=== PATIENT | male | born 1985 | race Caucasian/White ===

== ENCOUNTER 2016-10-25 19:07 | Emergency (ER) | payer SELFPAY ==
[~2016-10-25] VITALS: Ht 172.7 cm; Wt 77.3 kg
[~2016-10-25 19:07] MED LIST: PENI500T PO; PHEN12.5 PO; PHEN12.5 PR; TYLE3 PO; Z.0.NO CURRENT MEDS
[2016-10-25 19:09] VITALS: BP 143/94; PULSE 68; RESP 16; TEMP 98; O2SAT 97
--- NOTE | 2016-10-25 20:07 | PD ---
HPI Chief Complaint: Oral / Dental Pain or Problem Time Seen by Provider: 19:45 Travel History International Travel<30 days: No Contact w/Intl Traveler<30days: No Traveled to known affect area: No History of Present Illness HPI 30-year-old male with no significant past medical history presents to emergency room for right lower dental pain. He reports he cracked tooth while eating hard candy approximately one month ago and has had intermittent pain since. He reports that he has some gum tenderness and swelling around the tooth. He denies fevers chills or difficulty swallowing. He reports he has a dentist but has been unable to make an appointment due to financial reasons. PFS Past Medical History Medical History: Denies Significant Hx Diminished Hearing: No Tetanus Vaccination: Unknown Influenza Vaccination: No ?: Not Social History Alcohol Use: No Tobacco Use: No Substance Use: No Allergies-Medications (Allergen,Severity, Reaction): Coded Allergies: No Known Allergies (Verified , 10/25/16) Reported Meds & Prescriptions Reported Meds & Active Scripts Active Phenergan (Promethazine HCl) 12.5 Mg Tab 12.5 Mg PO Q6HPRN FOR NAUSEA Phenergan (Promethazine HCl) 12.5 Mg Sup 12.5 Mg SD Q6HPRN FOR NAUSEA USE IF UNABLE TO TAKE ORAL MEDICATION Pen Vk (Penicillin V Potassium) 500 Mg Tab 500 Mg PO QID Tylenol #3 (Acetaminophen/Codeine Phosphate) 300 Mg/30 Mg Tab 1 Tab PO Q6HPRN FOR PAIN Reported No Current Meds (Miscellaneous Medication) Misc Review of Systems Except as stated in HPI: all other systems reviewed are Neg Physical Exam Narrative GENERAL: Alert well-appearing male in no acute distress SKIN: Focused skin assessment warm/dry. HEAD: Atraumatic. Normocephalic. EYES: Pupils equal and round. No scleral icterus. No injection or drainage. MOUTH: Tooth #29 has a partial crack and some decay. He has surrounding gum erythema and tenderness. NECK: Trachea midline. No JVD. CARDIOVASCULAR: Regular rate and rhythm. No murmur appreciated. RESPIRATORY: No accessory muscle use. Clear to auscultation. Breath sounds equal bilaterally. MUSCULOSKELETAL: No obvious deformities. No clubbing. No cyanosis. No edema. NEUROLOGICAL: Awake and alert. No obvious cranial nerve deficits. Motor grossly within normal limits. Normal speech. PSYCHIATRIC: Appropriate mood and affect; insight and judgment normal. Data Data Last Documented VS Vital Signs Date Time Temp Pulse Resp B/P Pulse Ox O2 Delivery O2 Flow Rate FiO2 10/25/16 19:09 98.0 68 16 143/94 97 MDM Medical Decision Making Medical Screen Exam Complete: Yes Emergency Medical Condition: Yes Differential Diagnosis Dental abscess, dental caries, fractured tooth, periodontal disease Narrative Course 30-year-old male presents for evaluation of right lower dental pain. He reports he cracked a tooth last month and has had intermittent pain. He reports in the last several days areas become increasingly more painful. On exam the patient does have a cracked tooth surrounding gum erythema patient will be treated with penicillin and instructed to follow up with his dentist. Diagnosis Primary Impression: Dental infection Referrals: Dentist Scripts Ibuprofen 800 Mg [id number] Mg PO Q8H PRN (Pain/Inflammation) #30 TAB Prov:Catherine Branch 10/25/16 Penicillin V Potassium 250 Mg [id number] Mg PO Q6H #28 TAB Ref 0 Prov:Catherine Branch 10/25/16 Disposition: 01 DISCHARGE HOME Condition: Stable Catherine Branch October 25, 2016 20:07
[2016-10-25] MEDS ORDERED: PENI250T PO (20:08)
[2016-10-25] MEDS ORDERED: IBUP800T23 PO (20:08)
== END 2016-10-25 20:30 | disposition home or self-care (01) ==
LOC: PHEFT 19:07
DX: K08.89 Other specified disorders of teeth and supporting structures (principal)
CPT/HCPCS: 99283

== ENCOUNTER 2017-04-06 13:48 | Emergency (ER) | payer SELFPAY ==
[~2017-04-06] VITALS: Ht 167.6 cm; Wt 75.8 kg
[~2017-04-06 13:48] MED LIST changes: +IBUP1TAB7 PO; +PENI250T PO
[2017-04-06 14:08] VITALS: BP 121/76; PULSE 80; RESP 18; TEMP 98.7; O2SAT 97
--- NOTE | 2017-04-06 14:11 | PD ---
HPI Chief Complaint: Eye Problems/Injury Time Seen by Provider: 14:04 Travel History International Travel<30 days: No Contact w/Intl Traveler<30days: No Traveled to known affect area: No History of Present Illness HPI 31-year-old male presents with foreign body sensation and irritation left eye. Symptoms started 1 week ago. 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 He has tried washing it out but symptoms have persisted which prompted evaluation. Last tetanus vaccination within 5 years. No other complaints. PFSH Past Medical History Diminished Hearing: No Social History Alcohol Use: No Tobacco Use: No Substance Use: No Allergies-Medications (Allergen,Severity, Reaction): Coded Allergies: No Known Allergies (Verified Adverse Reaction, Unknown, 04/06/17) Reported Meds & Prescriptions Reported Meds & Active Scripts Active Polytrim Opth Drops (Polymyxin/Trimethoprim Sulfate) 10,000-0.1 Unit/Ml-% Soln 1 Drop LEFT EYE Q6HR 7 Days Review of Systems Eyes: Positive: Redness, Foreign Body Sensation, Tearing, No: Blurred Vision HENT: No: Headaches Cardiovascular: No: Chest Pain or Discomfort Respiratory: No: Cough Physical Exam Narrative GENERAL: Well-nourished male in no acute distress SKIN: Warm and dry. HEAD: Atraumatic. Normocephalic. EYES: Pupils equal and round reactive to light extraocular muscles are intact left eye conjunctival injection is present. Upper eyelid was everted with no evidence of debris underneath the eyelid. There is a brown foreign body in the 9 o'clock position left eye not overlying the pupil. Wood's lamp reveals a negative Yaron's. ENT: No nasal bleeding or discharge. Mucous membranes pink and moist. NECK: Trachea midline. No JVD. CARDIOVASCULAR: Regular rate and rhythm. No murmur appreciated. RESPIRATORY: No accessory muscle use. Clear to auscultation. Breath sounds equal bilaterally. Data Data Last Documented VS Vital Signs Date Time Temp Pulse Resp B/P (MAP) Pulse Ox O2 Delivery O2 Flow Rate FiO2 04/06/17 14:08 98.7 80 18 121/76 (91) 97 Orders Orders Proparacaine 0.5% Opth Soln (Alcaine 0.5 (04/06/17 14:15) [facility] Medical Decision Making Medical Screen Exam Complete: Yes Emergency Medical Condition: Yes Medical Record Reviewed: Yes Differential Diagnosis Retained foreign body, ruptured globe, corneal abrasion, conjunctivitis, iritis Narrative Course Examination is consistent with a brown, likely would, foreign body at the 9 o' clock position left cornea not overlying the pupil. The foreign body was easily removed with a Q-tip. Upon reexamination there is no evidence of remaining foreign debris. Wood's lamp was performed again revealing a negative Yaron's. The patient will be discharged with Polytrim ophthalmic solution. Diagnosis Primary Impression: Foreign body of left eye Qualified Codes: T15.92XA - Foreign body on external eye, part unspecified, left eye, initial encounter Additional Instructions: Medication as prescribed. As discussed, symptoms should improve over the next several days and resolve in the next week. If symptoms are worsening return to the emergency room or follow-up with an housekeeping associate. Med/Other Pt SpecificInfo: Prescription(s) given Scripts Polymyxin B-Trimethoprim Opth Drops (Polytrim Opth Drops) 10,000-0.1 Unit/Ml-% Soln 1 DROP LEFT EYE Q6HR for Mgmt Bacterial Infection for 7 Days, #1 BOTTLE 0 Refills Prov: Sathish Solo MD 04/06/17 Disposition: 01 DISCHARGE HOME Condition: Stable Maynor Emerson Apr 06, 2017 14:11
[2017-04-06] MEDS ORDERED: PROPARACAINE HCL 0.5% OPHT SOLN 15 ML BTL LEFT EYE ONE (14:15)
[2017-04-06] MEDS ORDERED: POLY10O LEFT EYE (14:20)
== END 2017-04-06 14:37 | disposition home or self-care (01) ==
LOC: PHEFT 13:48
DX: T15.02XA Foreign body in cornea, left eye, initial encounter (principal); Y93.H2 Activity, gardening and landscaping; Y99.0 Civilian activity done for income or pay
CPT/HCPCS: 99283